=== PATIENT | female | born 2005 | race African-American/Black ===

== ENCOUNTER 2025-01-03 15:33 | Emergency (ER) | payer MEDICAID, SELFPAY ==
--- OUTSIDE RECORDS SUMMARY | 2020-12-19 07:00 | XMS_ITS | Continuity of Care Document ---
Author Organization [facility] Address [address] [place] [address] Phone Care Team Providers Care Closet Organizer Name Role Phone John Laws MD Unavailable Unavailable Allergies, Adverse Reactions, Alerts Substance Reaction Status Criticality No Known Allergies Active No Inform ation Medications Medication Instructions Dosage Effective Dates (start - stop) Status Comments No Drug Therapy Prescribed Procedures Procedure Date COMPREHENSIVE EYE EXAM, NEW PATIENT REFRACTION Advance Directives Directive Yes / No Effective Date File Name No Information Encounters Encounter Description Practice Location Reason(s) For Visit Diagnoses Date Provider Providers Copied on Encounter [facility], [address] [place], [place] [address] [address], [place], [address], [place] tel:[phone] [facility] muscle evaluation (chief complaint) Myopic astigmatism of both eyesMyopia, bilateral Veto Lopez. [address] [place], [address], [place]. tel:[phone] Referring Provider: Astrid Dietrich OD, [address] [place], [address]. tel:[phone] Family History Family Member Type Diagnosis Age At Onset Problem Family history of Diabetes m kassie Payers Payer name Insurance type Covered libertarian ID Authoriza tion(s) V [employer] Medicaid [id number] Social History Type Description Quantity Date Captured Comments Alcohol Use Details Unknown Caffeine Use Details Unknown Nov-05-2021 Tobacco Use Status Current non-smoker Smoking Status Never smoker Non-Smoking Tobacco Use Details : No Details Available : No Details Available Sex Female Chief Complaint And Reason For Visit From encounter dated '12/19/2020 13:00'. muscle evaluation (chief complaint). Description: Referred by Dr. Dietrich for decreased acuity.Pt states both distance and near are blurry at times.It started about 1 year ago. Pt states she squints a lot.Pt states she gets headaches 1x week. Denies misalignment and pain/pressure. Reason For Referral Reason For Referral No Information Plan Of Treatment Date Type Action Status Patient Education Learning About [facility] s completed History Of Present Illness Encounter Date Complaint History Of Prese nt Illness muscle evaluation Referred by Dr Nola Dietrich for decreased acuity.Pt states both distance and near are blurry at times.It started about 1 year ago. Pt states she squints a lot.Pt states she gets headaches 1x week. Denies misalignment and pain/pressure. Functional Status Date Functional Assessmen t No Information Medications Administered Medication Instructions Dosage Effective Dates (start - stop) Status Comments No Drug Therapy Prescribed Instructions Date Instruction Additional Infor mation Impression/Plan Related to Myopi c astigmatism of both eyes Assessments Type Assessment Date assessment Myopic astigmatism of both eyes assessment Myopia, bilateral impression Myopic astigmatism of both eyes: H52.203 Patient Care Teams Name Effective Dates (start - stop) Status Members No Information
--- OUTSIDE RECORDS SUMMARY | 2020-12-19 07:00 | XMS_ITS | Continuity of Care Document ---
Author Organization [facility] Address [address] [place] [address] Phone Care Team Providers Care Crewman Armoured Personnel Carrier [id number] Name Role Phone John Laws MD Unavailable [...] Provider Providers Copied on Encounter [facility], [address] [place], [place] [address] [address], [place], [address], [place] tel:[phone] [facility] muscle evaluation (chief complaint) Myopic astigmatism of both eyesMyopia, bilateral Veto Lopez. [address] [place], [address], [place]. tel:[phone] Referring Provider: Astrid Dietrich OD, [address] [place], [address]. tel:[phone] Family History Family Member Type Diagnosis Age At Onset Problem Family history of Diabetes m kassie Payers Payer name Insurance type Covered republican ID Authoriza tion(s) V [employer] Medicaid [id number] Social History Type Description Quantity Date Captured [...]
[2025-01-03 15:37] VITALS: BP 121/73; PULSE 93; RESP 16; TEMP 36.7; O2SAT 99
--- NOTE | 2025-01-03 16:05 | ED.GENADULT ---
HPI - General Adult General Chief complaint: Psychiatric Symptoms Stated complaint: suicidal Time Seen by Provider: 01/03/25 15:52 History of Present Illness HPI narrative: 19-year-old female present to the emergency department for psychiatric evaluation. Patient is currently at [facility] and patient reports that she did ingest about 20 pills of ibuprofen last night, patient states that she took these because she wanted to . Patient reports he did make herself vomit after the ingestion she states that she feels fine at this time. Related Data Allergies Allergy/AdvReac Type Severity Reaction Status Date / Time No Known Allergies Allergy Verified 01/03/25 16:56 Review of Systems Review of Systems: All systems reviewed & are unremarkable except as noted in HPI and below Exam Narrative: APPEARANCE: Well appearing, no pain, no distress, well-nourished. HEAD: normocephalic, atraumatic. EYES: PERRLA/EOMI, conjunctivae clear. NOSE: Normal no drainage EARS:TMS clear with good light reflex. THROAT: Pharynx clear, no exudate. NECK: Supple. No adenopathy, no masses. RESPIRATORY: Airway patent, respirations nonlabored. Clear to auscultation bilaterally, no rales, rhonchi, wheezing. CARDIOVASCULAR: Regular rate and rhythm without murmurs rubs or gallops. ABDOMINAL: Soft, nontender, nondistended, normal bowel sounds MUSCULOSKELETAL: Moves all extremities. Strength/ROM intact, No edema, No calf tenderness. NEURO: Alert. Cranial nerves II through XII intact. Good gait. Good coordination SKIN: Warm, dry. Normal Color PSYCHIATRIC: Aggressive behavior, labile affect Course Vital Signs Vital signs: Vital Signs Temperature 98.0 F 01/03/25 15:37 Pulse Rate 93 01/03/25 15:37 Respiratory Rate 16 01/03/25 15:37 Blood Pressure 121/73 01/03/25 15:37 Pulse Oximetry 99 01/03/25 15:37 Oxygen Delivery Room Air 01/03/25 15:37 Temperature 97.3 F L 01/03/25 21:45 Pulse Rate 78 01/04/25 02:44 Respiratory Rate 14 01/04/25 02:44 Blood Pressure 114/59 L 01/03/25 21:45 Pulse Oximetry 100 01/04/25 02:44 Oxygen Delivery Room Air 01/03/25 15:37 Medical Decision Making MDM Narrative Medical decision making narrative: 19-year-old female presents emergency department for evaluation for suicidal attempt that was and ibuprofen ingestion. Patient was very aggressive I rate upon arrival to the emergency department. Patient did require medications to help with agitation. Patient was then able to be further deescalated verbally. [facility] felt the patient was to labile for their facility and did recommend placement. At time of sign-out placement at [facility] Vital Signs Vital Signs: Vital Signs Temperature 98.0 F 01/03/25 15:37 Pulse Rate 93 01/03/25 15:37 Respiratory Rate 16 01/03/25 15:37 Blood Pressure 121/73 01/03/25 15:37 Pulse Oximetry 99 01/03/25 15:37 Oxygen Delivery Room Air 01/03/25 15:37 Temperature 97.3 F L 01/03/25 21:45 Pulse Rate 78 01/04/25 02:44 Respiratory Rate 14 01/04/25 02:44 Blood Pressure 114/59 L 01/03/25 21:45 Pulse Oximetry 100 01/04/25 02:44 Oxygen Delivery Room Air 01/03/25 15:37 Lab Data 01/03/25 16:19 01/03/25 16:19 Labs: Lab Results 01/03/25 01/03/25 Range/Units 15:50 16:19 WBC 7.4 (4.5-10.0) K/mm3 RBC 4.66 (4.2-5.4) M/mm3 Hgb 13.2 (12.0-15.0) g/dL Hct 41.0 (37.0-47.0) % MCV 88.0 (80-100) fl MCH 28.3 (26-34) pg MCHC 32.2 (32-36) g/dl RDW 13.2 (11.5-14.5) % Plt Count 392 H (150-375) k/mm3 MPV 9.7 (7.4-10.4) fl Immature Gran % (Auto) 0.3 (0-0.5) % Neut % (Auto) 51.5 (45.5-73.1) % Lymph % (Auto) 36.3 (18.3-44.2) % [place] % (Auto) 10.2 H (2.6-8.5) % Eos % (Auto) 1.4 (0-4.4) % Baso % (Auto) 0.3 (0.2-1.2) % Lymph # (Auto) 2.68 (0.9-3.2) K/mm3 [place] # (Auto) 0.8 H (0.1-0.6) K/mm3 Eos # (Auto) 0.1 (0-0.3) K/mm3 Baso # (Auto) 0.0 (0.0-0.1) K/mm3 Abs Immat Gran (auto) 0.02 (0.00-0.031) K/mm3 Absolute Neuts (auto) 3.8 (1.3-6.7) K/mm3 Absolute Nucleated RBC 0.000 (0.0-0.012) K/mm3 Nucleated RBC % 0.0 (0.0-0.2) % Sodium 140 (137-145) mmol/L Potassium 3.5 (3.4-5.0) mmol/L Chloride 103 (98-107) mmol/L Carbon Dioxide 28 (22-30) mmol/L Anion Gap 9 (4-12) mmol/L BUN 18 H (7-17) mg/dL Creatinine 0.96 (0.7-1.0) mg/dL Estim Creat Clear Calc 105 ml/min Estimated GFR > 60 (59 - ) Glucose 85 (65-110) mg/dL Calcium 9.4 (8.4-10.2) mg/dL Total Bilirubin 0.3 (0.2-1.3) mg/dL AST 31 (14-36) U/L ALT 20 (6-35) U/L Alkaline Phosphatase 61 (38-126) U/L Total Protein 9.0 H (6.3-8.2) g/dL Albumin 4.6 (3.5-5.1) g/dL TSH (Reflex) 1.090 (0.465-4.68) uIU/mL Urine Color Yellow (Yellow) Urine Appearance Cloudy H (Clear) Urine pH 5.5 (5.0-9.0) Ur Specific [place] 1.029 (1.001-1.035) Urine Protein Negative (Negative) mg/dL Urine Glucose (UA) Negative (Negative) mg/dL Urine Ketones Trace H (Negative) mg/dL Ur Blood (Man) Negative (Negative) Urine Nitrate Negative (Negative) Urine Bilirubin Negative (Negative) Urine Urobilinogen 0.2 (<2.0) mg/dL Add Ur Microanalysis Reviewed Leukocyte Esterase Rfl 1+ H (Negative) NORRIS/UL Urine RBC 0-2 (0-2) /hpf Urine WBC 11-20 H (0-3) /hpf Ur Squamous Epith Cells Few (Few) /hpf Urine Bacteria 2+ H /hpf Urine Casts 3-5 POC Urine HCG, Qual Negative (Negative) Salicylates < 1.0 L (2-20) mg/dL Urine Opiates Screen Negative (Negative) Urine Methadone Screen Negative (Negative) Acetaminophen < 10 L (10-30) ug/mL Ur Barbiturates Screen Negative (Negative) Ur Phencyclidine Scrn Negative (Negative) Ur Amphetamine Screen Negative (Negative) U Benzodiazepines Scrn Positive A (Negative) Urine Cocaine Screen Negative (Negative) U Cannabinoids Screen Negative (Negative) Ethyl Alcohol < 10 (<10) mg/dL SARS-CoV-2 RNA (RT-PCR) Negative (Negative) Restraint Face to Face Eval ED Evaluation Findings Date Seen by EDP: 01/03/25 Pt's immediate situation:: Patient was being disruptive to the emergency department and screaming at staff. Pt's reaction to intervention:: Attempted verbal deescalation patient did not respond well to this. Patient did respond well to Haldol and Ativan and then patient was than receptive to additional verbal deescalation. Pt's med/behavioral condition:: Head re-evaluation patient is resting comfortably Discharge Plan Discharge Clinical Impression: Overdose, Suicidal ideation Patient Disposition: Psychiatric Hosp Condition: Stable Instructions: Antibiotic Form Additional Instructions: Only taking medications as directed Patient Language: German Follow-up/Referrals: PHYSICIAN,MAJOR ACCOUNT MANAGER [Primary Care Provider, Internal Medicine]
[2025-01-03 16:15] LABS: BEDSIDEPREGUCG Negative (Negative)
--- NOTE | 2025-01-03 16:26 | PC.NURSE ---
this RN called Mei at this time. Mei would like to get the pt medially cleared, they would like to verify if the pt actually took these medications and is safe to return to [place]. pt told Mei her urine was orange
--- NOTE | 2025-01-03 16:30 | PC.NURSE ---
pt hitting the wall yelling and screaming very loud. Not listening to any staff member to stop. disrupting the ER.
[2025-01-03 16:32] LABS: Hematocrit 41.0 % (37.0-47.0); Hemoglobin 13.2 g/dL (12.0-15.0); Immature Granulocyte Percent A 0.3 % (0-0.5); Lymphocytes Absolute Auto 2.68 K/mm3 (0.9-3.2); Mean Corpuscular HGB Conc 32.2 g/dl (32-36); Mean Corpuscular Hemoglobin 28.3 pg (26-34); Mean Corpuscular Volume 88.0 fl (80-100); Nucleated Red Blood Cells Absolute Auto 0.000 K/mm3 (0.0-0.012); Nucleated Red Blood Cells Perc 0.0 % (0.0-0.2); Platelet Count Result 392 k/mm3 (150-375); Red Blood Count 4.66 M/mm3 (4.2-5.4); White Blood Count 7.4 K/mm3 (4.5-10.0)
[2025-01-03 16:42] LABS: Alanine Aminotransferase 20 U/L (6-35); Albumin Level 4.6 g/dL (3.5-5.1); Alkaline Phosphatase 61 U/L (38-126); Anion Gap 9 mmol/L (4-12); Aspartate Amino Transferase 31 U/L (14-36); Bilirubin,Total 0.3 mg/dL (0.2-1.3); Blood Urea Nitrogen 18 mg/dL (7-17); Calcium 9.4 mg/dL (8.4-10.2); Carbon Dioxide 28 mmol/L (22-30); Chloride 103 mmol/L (98-107); Estimated CRCL calculation 105 ml/min; Estimated Glomerular Filt Rate > 60; Glucose 85 mg/dL (65-110); Potassium 3.5 mmol/L (3.4-5.0); Sodium 140 mmol/L (137-145); Total Protein 9.0 g/dL (6.3-8.2)
--- NOTE | 2025-01-03 16:49 | PC.NURSE ---
Patient lying on floor with feet bouncing on the wall laughing saying I know how to fight the system
--- NOTE | 2025-01-03 16:54 | PC.NURSE ---
Megan RN, at [facility] contacted d/t patient overdose last noc. Per Megan, as long as patient's labs are ok and is asymptomatic then we should not expect any side effects. EDP made aware.
[2025-01-03] MEDS: Please add drug allergy info to patient profile. 1 EACH XX (16:57)
[2025-01-03] MEDS: HALOPERIDOL LACTATE 5 MG/ML VIAL IM (16:57)
--- NOTE | 2025-01-03 16:59 | PC.NURSE ---
pt screaming very loudly that I don't give a fuck
[2025-01-03 17:05] LABS: Add Urine Microscopic? YES; Appearance Urine Cloudy (Clear); Glucose Urine UA Negative (Negative); Leukocyte Esterase Ur 1+ LEU/UL (Negative); Need Manual Microscopic Reviewed; Nitrate Urine Negative (Negative); Specific Grav Ur 1.029 (1.001-1.035)
[2025-01-03 17:10] LABS: SARS-CoV-2 RNA PCR Negative (Negative)
[2025-01-03] MEDS: LORazepam INJ (*CRX) 2 MG/ML VIAL IM (17:13)
[2025-01-03 17:17] LABS: Acetaminophen < 10 ug/mL (10-30); Salicylate < 1.0 mg/dL (2-20)
[2025-01-03 17:18] LABS: Cannabinoid Screen Urine Negative (Negative)
[2025-01-03 17:29] LABS: Thyroid Stimulating Hormone Reflex 1.090 uIU/mL (0.465-4.68)
--- NOTE | 2025-01-03 17:31 | PC.NURSE ---
[facility] called and this RN spoke with Radha who works on the unit the patient is staying on. Radha given full report and all questions answered. Radha states patient might be higher acuity than they can handle and was going to speak with her harvest supervisor. Radha to call back, she was given the ED main number.
--- NOTE | 2025-01-03 17:39 | PC.NURSE ---
Radha called back to say their crisis team was en route to evaluate patient. EDP and ED votator machine operator made aware.
--- OUTSIDE RECORDS SUMMARY | 2025-01-03 18:10 | XMS_ITS | Patient Health Record ---
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 Name Role Phone Shoaib Peggy Primary Care Provider Cait Reyes Unavailable [phone] Carlos Manuel Pérez Unavailable [phone] Rubi Guerra Unavailable [phone] Mimi Villanueva Unavailable [phone] Allergies Allergen (clinical drug ingredient) Drug/Non Drug Allergy documented on EMR Reaction Allergy Type Onset Date Status Dairy Digestive nausea and vomiting Drug Allergy Active Results Component Value Reference Range Notes Breathalyzer (Not yet review ed by provider) Interpretation: Performing Lab: Notes/Report: LEE 0.000 Test, Urine (Not y et reviewed by provider) Interpretation: Performing Lab: Notes/Report: Test, Urine neg Negative - Negative 14 Panel Urine Drug Screen ( Not yet reviewed by provider) Interpretation: Performing Lab: Notes/Report: THC pos ERICK neg MOP (OPI) neg AMP neg MET neg BAR neg BZO pos MDMA neg MTD neg OXY neg PCP neg BUP pos TCA neg FTY neg Reason For Referral No Information Medications Medication SIG (Take, Route, Frequency, Duration) Notes Start Date End Date Status Multi Vitamin - 1 tablet Orally Once a day; Duration: 30 days 01/03/2025 Active Melatonin 5 MG 1 tablet at bedtime as needed Orally Once a day; Duration: 30 days 01/03/2025 Active Nicotine 7 MG/24HR 1 patch to skin Transdermal Once a day, removing at bedtime; Duration: 14 days 01/03/2025 Active hydrOXYzine Pamoate 25 MG 1-2 capsules O rally every 4 hours as needed for anxiety, agitation, or inability to sleep. Do not give within 4 hours of diphenhydramine.; Duration: 30 days 01/03/2025 Active QUEtiapine Fumarate 100 MG 1 tablet Oral ly Once a day; Duration: 10 days Active QUEtiapine Fumarate 300 MG 1 tablet at b edtime Orally Once a day; Duration: 10 days Active Sertraline HCl 100 MG 1 tablet Orally On ce a day; Duration: 10 days Active ARIPiprazole 5 MG 1 tablet Orally Once a day; Duration: 10 days Active busPIRone HCl 7.5 MG 1 tablet Orally Twi ce a day; Duration: 10 days Active hydrOXYzine Pamoate 50 MG 1 capsule at b edtime as needed Orally bedtime; Duration: 30 days Active SEROquel 200 MG 1 tablet Orally bedt narciso; Duration: 30 days Active Nicotine Polacrilex 2 MG 1 lozenge as ne eded for nicotine cravings Mouth/Throat Up to once per hour (maximum of 15 lozenges per day); Duration: 7 days 01/03/2025 Active Social History Tobacco Control (Standard) Question Answer Notes Additional Findings: Tobacco user e-cigarette Problems Problem Type SNOMED Code ICD Code Onset Dates Problem Status W/U Status Risk Notes Problem Insomnia (117355798) Insomnia (G47.00) Active confirmed Problem Major depression (109952902) Major depression (F32.9) Active confirmed Problem Generalized anxiety disorder (96543177) ABDELRAHMAN (generalized anxiety disorder) (F41.1) Active confirmed Problem Hallucinations (9120750) Hallucinations (R44.3) Active confirmed Problem Overweight (040031813) Over weight (E66.3) Active confirmed Problem Mental health disorder (67904093) Mental health disorder (F99) Active confirmed Problem Physical examination, complete (28627554) Adult general medical examination (Z00.00) Active confirmed Problem Major depression with psychotic features (542462105) Major depression with psychotic features (F32.3) Active confirmed Vital Signs Heart Rate 74 /min 01/03/2025 Temperature 97.9 degrees Fahrenheit 01/03/2025 Respiratory Rate 18 /min 01/03/2025 Oximetry 98 % 01/03/2025 Blood pressure diastolic 68 mm Hg 01/03/2025 Height 65 in 01/03/2025 Blood pressure systolic 122 mm Hg 01/03/2025 Weight 260.4 lbs 01/03/2025 BMI 43.33 kg/m2 01/03/2025 Encounters Encounter Location Date Provider Diagnosis [facility] [address] [address] 01/03/2025 Carlos Manuel Bauder Adult general medica l examination Z00.00 ; Hallucinations R44.3 ; Suicidal ideation R45.851 and Major depression F32.9 [facility] [address] [address] 01/03/2025 Rubi Guerra Over weight E66.3 ; Mental health disorder F99 ; Hallucinations, unspecified R44.3 and Suicidal behavior with attempted self-injury T14.91XA [address] [address] 01/03/2025 Mimi Villanueva Major depression wit h psychotic features F32.[address] [address] 12/18/2024 Cait Reyes ABDELRAHMAN (generalized anxiety disorder) F41.1 ; Hallucinations R44.3 ; Major depression F32.9 and Insomnia G47.[address] [address] 12/27/2024 Cait Reyes ABDELRAHMAN (generalized anxiety disorder) F41.1 ; Hallucinations R44.3 ; Major depression F32.9 and Insomnia G47.[address] [address] 12/18/2024 Cait Reyes [address] [address] 12/24/2024 Cait Reyes [address] [address] 12/24/2024 Peggy Cramer Assessments Encounter Date Diagnosis (ICD Code) Assessment Notes Treatment Notes Treatment Clinical Notes Section Notes 12/18/2024 ABDELRAHMAN (generalized anxiety disorder) (ICD-10 - F41.1) Learning About Generalized Anxiety Disorder material was published 12/18/2024 Hallucinations (ICD-10 - R44.3) 12/27/2024 ABDELRAHMAN (generalized anxiety disorder) (ICD-10 - F41.1) Learning About Generalized Anxiety Disorder material was published 01/03/2025 Adult general medical examination (ICD-10 - Z00.00) Admit to the Mental Health/Crisis Residential Unit and initiate standing/protocol orders: The following PRN medications may be self-administered by patients under the supervision of approved staff or administered by nursing staff: Ibuprofen 200mg, 2-4 tablets by mouth (with food) every 6 hours as needed for pain (unless on lithium). (NOTE: Ibuprofen and acetaminophen may be given together, but alternating is recommended for continuous pain relief. Guaifenesin 400 mg, 1 tablet by mouth every four hours as needed for cough and chest congestion (take with large glass of water). Loratadine 10 mg, 1 tablet by mouth daily as needed for allergies, watery itchy eyes, or sinus drainage. Throat Lozenges, up to 4 tablets by mouth every three to four hours as needed for sore throat. Antacid tablets, 1-2 tablets by mouth every one to two hours as needed for indigestion or heart burn. If the client prefers liquid, could use: Liquid Antacid : 1 ounce by mouth up to four times daily as needed for indigestion or heartburn Omeprazole 20mg, 1 capsule by mouth once daily for 14 days for frequent heartburn (frequent heartburn is more than 2 episodes per week). Do not exceed 14 days. Do not give to client already taking a proton-pump inhibitor: esomeprazole (Nexium), lansoprazole (Prevacid), pantoprazole (Protonix), rabeprazole (Aciphex), dexlansoprazole (Dexilant) Zofran ODT disintegrating (under the tongue) 4 mg, 1-2 tablets every 8 hours as needed for nausea/vomiting. Milk of Magnesia (MOM): 1 ounce (30 milliliters) by mouth every day as needed for constipation. OR Miralax: Stir and fully dissolve 17 grams (1 packet or 1 capful to measured line) in any 4 to 8 ounces of beverage then drink once daily for constipation. Do not use for more than 7 days. OR Docusate 100 mg, 1 capsule twice daily as needed for constipation Hydrocortisone 1% Cream, apply topically (to the skin) to the affected area up to three times daily as needed for itching or inflammation (avoid eyes and genitals). 2% Antifungal Cream, apply topically (to the skin) as directed as needed to affected areas for athlete's foot or jock itch. Triple Antibiotic Ointment, apply topically (to the skin) up to three times daily as needed for minor cuts and scrapes. Carmex or Chapstick, apply topically (to the skin) as needed for chapped lips and skin. Orajel, apply to affected areas as needed for mouth or tooth pain. Lubricating Eye Drops, instill 1-2 drops to the affected eye(s) as needed for dry/irritated eye(s). Hemorrhoid medications, apply to affected area according to directions as needed for hemorrhoid discomfort and itch. Nix (Permethrin 1%) cream 2 ounces, apply topically (to the skin) as directed as needed for head lice. Sunscreen 30 SPF, Apply to exposed skin prior to exposure to sun. The following PRN medications must be approved by nursing staff before self-administration by patients: Diphenhydramine 25 mg, 2 tablets by mouth every 4 hours as needed for allergic reaction or itchy rash. Caution: Do not use hydroxyzine within 4 hours of diphenhydramine and vice versa. Loperamide 2 mg capsules, may give two capsules by mouth for the initial dose, followed by one capsule up to 3 times a day as needed for diarrhea. Acetaminophen 500 mg, 1 - 2 tablets by mouth every six hours as needed for pain. (NOTE: Ibuprofen and acetaminophen may be given together, but alternating is recommended for continuous pain relief). Oxygen-May administer oxygen 2L/min via nasal cannula if O2 saturation is less than 92%, AND client complains of shortness of breath. Target O2 saturation is 94-98%. Caution: Remember too much oxygen can be detrimental to a client with COPD. Oxygen is a drug and should be delivered by trained staff only. Nurses may remove superficial splinters and sutures from skin lacerations. May apply gauze or bandages to any weeping wounds. Contact nursing if there is pus, a foul odor, increased pain/redness/swelling , or if soaking through bandages. 01/03/2025 Over weight (ICD-10 - E66.3) 01/03/2025 Major depression with psychotic features (ICD-10 - F32.3) Cristina Garcia, a 19-year-old female, presented for a mental health evaluation focused on depression, suicidal thoughts, self-harm, hallucinations, and anxiety. She described persistent sadness, a loss of interest in daily activities, and difficulty getting out of bed. Her motivation and energy are low, and she struggles with poor appetite, sleeping too much, and frequent nightmares. Feelings of hopelessness and guilt are compounded by a sense of isolation and lack of family support, with her boyfriend serving as her primary support system. She reported limited contact with her siblings due to a recent conflict with her aunt, which escalated to self-harm and police involvement. Cristina recounted multiple suicide attempts, including a recent overdose with Motrin and episodes of cutting herself on her arm. She described impulsive and risky behaviors, frequent mood swings, and anger outbursts, often triggered by family conflict. Despite these challenges, she sometimes keeps her suicidal thoughts to herself. She expresses reluctance to seek medical care at the hospital for medical and psychiatric evaluation after recent OD attempt with Motrin. Auditory hallucinations have been a persistent issue, with voices telling her to harm herself, particularly at night. She noted that her current medication, Seroquel, does not alleviate these hallucinations. Anxiety is a significant concern, rated 6 out of 10, with daily panic attacks and excessive worry about people and her future. While Seroquel provides some relief for anxiety, it does not address her hallucinations. 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 She described a lack of motivation and interest in activities she once enjoyed, and her overall sense of well-being is deeply affected by her mental health struggles. Patient currently admitted to [facility]. Recommending higher level of care due to suicidality, recent suicide attempt, and medical concerns from recent suicide attempt. Patient would benefit from 1:1 supervision and 24 hour nursing care at this time. [facility]U management team including Breann Nieto, Weston Rutledge, Rubi Guerra, Alondra Coreas, Urvashi Wood, and Sharmila Coughlin were made aware of this recommendation. Discussed recommendation with patient. 01/03/2025 Mental health disorder (ICD-10 - F99) 12/27/2024 Hallucinations (ICD-10 - R44.3) 01/03/2025 Hallucinations (ICD-10 - R44.3) 01/03/2025 Suicidal ideation (ICD-10 - R45.851) Warm hand off to and has appt with Cait reyes on 01/08 Recommend patient be admitted to hospital for further psych evaluation. Crisis was called by Rubi Davis. they determined there was nothing they could do and come up with a safety plan for patient for the unit. 12/18/2024 Major depression (ICD-10 - F32.9) Learning About Depression material was published 12/18/2024 Insomnia (ICD-10 - G47.00) Learning About Sleeping Well material was published 01/03/2025 Major depression (ICD-10 - F32.9) 01/03/2025 Hallucinations, unspecified (ICD-10 - R44.3) 12/27/2024 Major depression (ICD-10 - F32.9) Learning About Depression material was published 01/03/2025 Suicidal behavior with attempted self-injury (ICD-10 - T14.91XA) 12/27/2024 Insomnia (ICD-10 - G47.00) Learning About Sleeping Well material was published 01/03/2025 Other Continue treatment as recommended by [facility] Crisis [facility]idential [facility] staff. Encouraged patient to obtain routine medical care with patient's own primary care provider or establish as a patient at [facility] if no current primary care provider. 01/03/2025 Other Clinician met w ith client to assess needs for residential services. Clinician gathered information regarding historical presentation of mental health and substance use symptoms including withdrawal, HIV Risk assessment, psychiatric hospitalization history and presenting concern. Clinician conducted PHQ9 and CSSRS assessments as well as social drivers of health screening for the purposes of identifying additional service needs. Engaged individual in suicide risk assessment. Provided risk based intervention to ensure saftey and linkage to ongoing services 01/03/2025 Other The plan was discussed with the patient/guardian. The treatment recommendations were discussed in depth, including pros and cons of each treatment option, reasonable alternates, reasons, potential benefits, potential risks, interactions, and side-effects of all medications, including pertinent Black box warnings and the use of off label medications. The treatment plan was formulated after verbal agreement of the patient/guardian. Patient/guardian were educated about the importance of medication adherence/compliance. Patient/guardian was advised to contact provider if any medication side effects are noted. The Patient/Guardian asked appropriate questions, verbalized understanding of the treatment, and decided to accept the treatment and continue being followed. Alternatives and expected course without treatment were reviewed. The Patient/Guardian is aware of the need to contact the office or return for an earlier appointment if any problems or concerns arise. A safety plan was discussed with the patient/guardian. The patient/guardian has been explained that for emergencies, if new symptoms arise or existing symptoms worsen, suicidal ideation, homicidal ideation, high risk behaviors, manic symptoms, psychotic symptoms, physical symptoms, or any other symptoms that may be dangerous to self or others, the patient is recommended to seek immediate help by calling the [place] crisis line, 911, or going to the nearest emergency room. Patient/guardian verbalized ability and intention to follow with the safety plan. No acute safety concerns. Patient's/guardian's preferences addressed, prefers plan as outlined. Greater than 50% of time spent on coordination and counseling where psychopharmacology as well as psychotherapeutic interventions were discussed along with review of treatments in the past. Encouraged healthy lifestyle choices, including eating healthy foods, taking part in physical activity as tolerated and safe, and maintaining good sleep hygiene. Patient advised to follow up with PCP for chronic medical conditions. No additional questions. May self-administer or be administered own oral medication per [place] Protocols. Provided informed consent with understanding of side effects, risks and benefits as well as alternative treatments as previously discussed and with the above recommended medications and other aspects of the treatment program. Agrees to return sooner if symptoms worsen or suicidal or homicidal ideations occur. Support and education provided concerning illness and treatment plan, risks and benefits, pt verbalized understanding of the same and agreeable Engaged individual in suicide risk assessment. Provided risk based intervention to ensure safety and linkage to ongoing services. 12/18/2024 Other Hydroxyzine mat erial was published, Buspirone material was published, Sertraline material was published, Quetiapine material was published, Aripiprazole material was published Plan Of Treatment Future Test Test Name Order Date Test, Urine 01/03/2025 CBC With Differential/Platelet* 01/04/20 25 Vitamin D, 25-Hydroxy* 01/03/2025 CMP 14 Comprehensive Metabolic Panel* Breathalyzer 01/03/2025 QuantiFERON-TB Gold Plus ([id number]) 2024 TSH+Free T4 01/03/2025 14 Panel Urine Drug Screen 01/03/2025 Next Appt Details Provider Name:Cait Reyes , 01/07/2025 08:00:00 AM, [address], [place], [address], Provider Name:Cait Reyes , 01/08/2025 10:00:00 AM, [address], [place], [address], Medical (General) History Medical History History ICD Code PTSD anxiety bipolar Hospitalization History Reason Date(Month/Year) [facility] for 12/2024 Brian in [facility] [place] for [place] 11/2024
--- NOTE | 2025-01-03 18:42 | PC.NURSE ---
Mei says the pt is now requiring higher level of care due to attempting to end her life within 24hrs of being at [facility]. Crisis came out to evaluate pt and is recommending placement. crisis reports pt has HX of depression, anxiety, bipolar disorder. pt hasn't been sleeping very well or taking her medications in the last 2 days, pt says they don't help with her command hallucinations.
[2025-01-03] MEDS: ACETAMINOPHEN 500 MG TABLET 1000 MG PO (19:28)
[2025-01-03] MEDS: LORazepam (*CRX) 1 MG TABLET PO (19:28)
--- NOTE | 2025-01-03 19:59 | PC.NURSE ---
RN spoke with Megan from [place] poison control center at this time. This RN gave an update on pt toxicology reports and how the pt is doing at this time. Pt has no complaints of her physical well being at this time. Pt was medically cleared. Megan from [place] poison control center states they are closing it on their end and to call them back if we have any other questions at this time.
--- NOTE | 2025-01-03 21:19 | PC.NURSE ---
This RN got off the phone with [facility] at this time. They asked for pt lab results to be faxed over. Lab results were faxed over at this time. [facility] fax number is [phone].
[2025-01-03 21:45] VITALS: BP 114/59; PULSE 70; RESP 20; TEMP 36.3; O2SAT 99
--- NOTE | 2025-01-03 21:45 | PC.NURSE ---
This RN spoke with [email or web address] and they asked for us to fax over pt lab results along with a note and time when poison control closed the case on their end. This RN faxed over the lab results and note that states when poison control closed the case on their end at this time. [email or web address] fax number is [phone].
--- NOTE | 2025-01-03 22:35 | PC.NURSE ---
RN got off the phone with Salome from [facility] and she states [facility] gave her a call back and declined pt due to her being a higher level of acuity care. Rn gave an update on process with [facility] as well. Salome states she is going to give [facility] another call to get an update from them.
--- NOTE | 2025-01-03 23:00 | PC.NURSE ---
This RN got off the phone with [facility]. They state that the psychologist has accepted pt to the facility they just have to confirm with their hospitalist. Per [place] the hospitalist is wanting the poison control case number. This RN faxed over the case number to [facility] at this time. Case number is [id number]. [facility] states they will call us back when hospitalist accepts pt.
--- NOTE | 2025-01-03 23:32 | PC.NURSE ---
Spoke to [place] life assurance representative at this time regarding updates on patient. All questions answered.
[2025-01-04 02:44] VITALS: PULSE 78; RESP 14; O2SAT 100
--- NOTE | 2025-01-04 02:59 | PC.NURSE ---
Spoke to Karuna at [facility] at this time regarding pt condition and transport update.
== END 2025-01-04 03:04 ==
PROVIDERS: Emergency Provider Emergency Medicine
DX: T39.312A Poisoning by propionic acid derivatives, intentional self-harm, initial encounter (principal); Z11.52 Encounter for screening for COVID-19
CPT/HCPCS: 36415; 80053; 80143; 80179; 80307; 81001; 81025; 82077; 84443; 85025; 87086; 87635; 96372; 99285; A9270; J1630; J2060